=== PATIENT | female | born 1945 | race Caucasian/White ===

== ENCOUNTER 2020-03-08 19:16 | Inpatient (IN) | payer OTHER ==
--- NOTE | 2020-03-08 20:05 | RAD REPORT ---
EXAM DESCRIPTION: Nasreen Single View03/08/2020 8:00 pm CLINICAL HISTORY: Chest pain COMPARISON: 2014 FINDINGS: The lungs appear clear of acute infiltrate. The heart is upper limits normal size IMPRESSION: No acute abnormalities displayed
--- NOTE | 2020-03-08 20:17 | RAD REPORT ---
EXAM DESCRIPTION: CT - Head Brain Wo Cont - 03/08/2020 8:00 pm CLINICAL HISTORY: Alteration of awareness/confusion COMPARISON: None TECHNIQUE: Computed axial tomography of the head was obtained. IV contrast was not requested. All CT scans are performed using dose optimization technique as appropriate and may include automated exposure control or mA/KV adjustment according to patient size. FINDINGS: An intracranial bleed is not seen . The ventricles are normal in caliber. No extra-axial fluid collection is noted. Small low-density areas within the left basal ganglia and right internal capsule probably old lacunar infarction. Mild low-density areas within periventricular, deep and subcortical white matter likely ischemic changes secondary to small vessel disease Fluid within the sinuses/ mastoids is not seen. IMPRESSION: No acute intracranial abnormality noted. If patient continues have symptoms to suggest acute intracranial pathology then MRI of the brain woul d be recommended.
[2020-03-08 20:49] LABS: ALT/SGPT 24 U/L (12-78); AST/SGOT 17 U/L (15-37); Albumin 2.4 g/dL (3.4-5.0); Alkaline Phosphatase 76 U/L (45-117); BUN Blood Urea Nitrogen 58 mg/dL (7-18); Bicarbonate 28 mmol/L (21-32); Bilirubin Direct < 0.1 mg/dL (0-0.2); Bilirubin Total 0.1 mg/dL (0.2-1.0); CKMB Creatine Kinase MB < 1.0 ng/mL (0.3-3.6); Creatine Phosphokinase 18 U/L (26-192); Glucose Level 179 mg/dL (74-106); Lipase 1146 U/L (73-393); Magnesium 2.4 mg/dL (1.8-2.4); Potassium 4.9 mmol/L (3.5-5.1); Protein, Total 7.5 g/dL (6.4-8.2); Sodium Level 138 mmol/L (136-145); Troponin (Emerg Dept Use Only) < 0.02 ng/mL (0.0-0.045)
[2020-03-08 20:50] LABS: Protime INR 0.97
[2020-03-08 21:03] LABS: Urine Blood 2+ (NEG); Urine Glucose NEGATIVE (NEG); Urine Protein 2+ (NEG); Urine pH 7.5 (5.0-7.0)
[2020-03-08 21:06] LABS: Absolute Lymphocytes (CBC) 1.9 K/uL (0.7-4.9); Basophils % 0.4 % (0-1.3); Hematocrit 25.5 % (36.0-45.0); Lymphocytes % 15.9 % (15.3-44.8); MPV 7.7 fL (7.6-11.3); RBC Red Blood Cell Count 2.78 M/uL (3.86-4.86)
[2020-03-08 21:47] LABS: Urine Bacteria >50 /HPF (<20); Urine RBC <5 /HPF (NONE SEEN)
[2020-03-08 21:48] LABS: Urine Culture Reflex Order REFLEXED; Urine Yeast PRESENT (NONE SEEN)
--- NOTE | 2020-03-08 23:27 | EDPHYS ---
Physician Documentation [facility] Name: Kathryn Hein Age: 75 yrs Sex: Female : 1945 Arrival Date: 03/08/2020 Time: 19:18 Bed 7 Private MD: ED Physician Shalom Cole HPI: 03/08 19:57 This 75 yrs old Female presents to ER via EMS with complaints of Altered mh7 Mental Status. 19:57 The patient presents with Increased sleepiness and less talkative. Onset: The mh7 symptoms/episode began/occurred 2 day(s) ago. Possible causes: unknown. Possible causes: low blood sugar. Associated signs and symptoms: Pertinent negatives: abdominal pain, agitation, ataxia, blurred vision, chest pain, combativeness, confusion, diaphoresis, diarrhea, dizziness, headache, lightheadedness, nausea, numbness, palpitations, seizure, shortness of breath, tingling, vertigo, vomiting, weakness. Current symptoms: In the emergency department the patient's symptoms have improved, markedly, is more alert. Patient's baseline: Neuro: alert but confused, Motor: no deficits, Ambulation: unable to walk, is bedridden, Speech: normal for age, The patient has a previous history of Dementia. It is unknown whether or not the patient has had similar symptoms in the past. Patient sent from care home due increased sleeping and being less talkative for the past 2 days. Patient is awake, alert and oriented here and denies any complaints.. Historical: - Allergies: 19:29 No Known Allergies; rv - PMHx: 19:29 Dementia; COPD; rv - Immunization history:: Adult Immunizations up to date. - Social history:: Smoking status: unknown. ROS: 19:57 Constitutional: Negative for fever, chills, and weight loss, Eyes: Negative for injury, mh7 pain, redness, and discharge, ENT: Negative for injury, pain, and discharge, Neck: Negative for injury, pain, and swelling, Cardiovascular: Negative for chest pain, palpitations, and edema, Respiratory: Negative for shortness of breath, cough, wheezing, and pleuritic chest pain, Abdomen/GI: Negative for abdominal pain, nausea, vomiting, diarrhea, and constipation, Back: Negative for injury and pain, : Negative for injury, bleeding, discharge, and swelling, MS/Extremity: Negative for injury and deformity, Skin: Negative for injury, rash, and discoloration, Psych: Negative for depression, anxiety, suicide ideation, homicidal ideation, and hallucinations, Allergy/Immunology: Negative for hives, rash, and allergies, Endocrine: Negative for neck swelling, polydipsia, polyuria, polyphagia, and marked weight changes, Hematologic/Lymphatic: Negative for swollen nodes, abnormal bleeding, and unusual bruising. Exam: 19:57 Constitutional: This is a well developed, well nourished patient who is awake, alert, mh7 and in no acute distress. Head/Face: Normocephalic, atraumatic. Eyes: Pupils equal round and reactive to light, extra-ocular motions intact. Lids and lashes normal. Conjunctiva and sclera are non-icteric and not injected. Cornea within normal limits. Periorbital areas with no swelling, redness, or edema. ENT: Nares patent. No nasal discharge, no septal abnormalities noted. Tympanic membranes are normal and external auditory canals are clear. Oropharynx with no redness, swelling, or masses, exudates, or evidence of obstruction, uvula midline. Mucous membranes moist. Neck: Trachea midline, no thyromegaly or masses palpated, and no cervical lymphadenopathy. Supple, full range of motion without nuchal rigidity, or vertebral point tenderness. No Meningismus. Chest/axilla: Normal chest wall appearance and motion. Nontender with no deformity. No lesions are appreciated. Cardiovascular: Regular rate and rhythm with a normal S1 and S2. No gallops, murmurs, or rubs. Normal PMI, no JVD. No pulse deficits. Respiratory: Lungs have equal breath sounds bilaterally, clear to auscultation and percussion. No rales, rhonchi or wheezes noted. No increased work of breathing, no retractions or nasal flaring. Abdomen/GI: Soft, non-tender, with normal bowel sounds. No distension or tympany. No guarding or rebound. No evidence of tenderness throughout. Back: No spinal tenderness. No costovertebral tenderness. Full range of motion. Female : Normal external genitalia. Skin: Warm, dry with normal turgor. Normal color with no rashes, no lesions, and no evidence of cellulitis. 19:57 Neuro: Awake and alert, GCS 15, oriented to person, place, time, and situation. Cranial nerves II-XII grossly intact. Motor strength 5/5 in all extremities. Sensory grossly intact. Cerebellar exam normal. Normal gait. Psych: Awake, alert, with orientation to person, place and time. Behavior, mood, and affect are within normal limits. 19:57 Musculoskeletal/extremity: Extremities: noted in the right foot: toe amputations without erythema, tenderness, discharge, ROM: intact in all extremities, Circulation is intact in all extremities. Sensation intact. Compartment Syndrome exam of affected extremity: is normal. no pain, no numbness, no tingling, no sensation deficit, no palor, no weak pulses, Joints: All joints appear normal with full range of motion. Weight bearing: is unable to bear weight. 23:41 ECG was reviewed by the Attending Physician. [facility] Vital Signs: 19:20 BP 152 / 64; Pulse 81; Resp 19; Temp 98.9; Pulse Ox 100% ; Weight 54.43 kg; rv 21:00 BP 128 / 48; Pulse 76; Resp 15; Pulse Ox 100% on 3 lpm NC; rv 21:30 BP 129 / 46; Pulse 76; Resp 12; Pulse Ox 100% on 3 lpm NC; rv 22:16 BP 121 / 54; Pulse 77; Resp 15; Pulse Ox 100% on 3 lpm NC; rv 23:00 BP 127 / 56; Pulse 75; Resp 15; Pulse Ox 100% on 3 lpm NC; rv 23:30 BP 129 / 63; Pulse 74; Resp 15; Pulse Ox 100% on 3 lpm NC; rv 03/09 00:00 BP 122 / 58; Pulse 79; Resp 14; Pulse Ox 100% on R/A; rv 01:00 BP 114 / 63; Pulse 77; Resp 16; Pulse Ox 100% on 3 lpm NC; rv 02:00 BP 113 / 60; Pulse 77; Resp 18; Temp 98.7; Pulse Ox 100% on 3 lpm NC; rv MDM: 03/08 19:19 Patient medically screened. [facility] 23:24 Differential Diagnosis: CVA, electrolyte abnormality, hypoglycemia, intracranial bleed, 7 pneumonia, sepsis, UTI, volume depletion. Data reviewed: vital signs, nurses notes, EMS record, care home records, lab test result(s), CBC, electrolytes, urinalysis, EKG, radiologic studies, CT scan, plain films. Data interpreted: Pulse oximetry: on room air is 100 %. Interpretation: normal. Counseling: I had a detailed discussion with the patient and/or guardian regarding: the historical points, exam findings, and any diagnostic results supporting the discharge/admit diagnosis, lab results, radiology results, the need for further work-up and treatment in the hospital. Response to treatment: the patient's symptoms have markedly improved after treatment. 03/08 19:22 Order name: Basic Metabolic Panel [facility] 03/08 19:22 Order name: CBC with Diff; Complete Time: 22: [facility] 03/08 19:22 Order name: Ckmb; Complete Time: : [facility] 03/08 19:22 Order name: CPK; Complete Time: : [facility] 03/08 19:22 Order name: Hepatic Function; Complete Time: : [facility] 03/08 19:22 Order name: Lipase; Complete Time: : [facility] 03/08 19:22 Order name: Magnesium; Complete Time: 21: [facility] 03/08 19:22 Order name: Protime (+inr); Complete Time: 22:20 [facility] 03/08 19:22 Order name: Ptt, Activated; Complete Time: 22:20 [facility] 03/08 19:22 Order name: Troponin (emerg Dept Use Only); Complete Time: 21: [facility] 03/08 19:22 Order name: Basic Metabolic Panel; Complete Time: 21: [facility] 03/08 20:47 Order name: Urine Microscopic Only; Complete Time: 22:20 rr5 03/08 20:48 Order name: Urine Dipstick--Ancillary (enter results); Complete Time: 22:20 tt3 03/08 21:49 Order name: Urine Culture [facility] 03/08 19:22 Order name: EKG; Complete Time: 19:23 [facility] 03/08 19:22 Order name: Cardiac monitoring; Complete Time: 19:53 [facility] 03/08 19:22 Order name: EKG - Nurse/Tech; Complete Time: 20:19 [facility] 03/08 19:22 Order name: IV Saline Lock; Complete Time: 21:05 [facility] 03/08 19:22 Order name: Labs collected and sent; Complete Time: 21: [facility] 03/08 19:22 Order name: NPO; Complete Time: 19:22 [facility] 03/08 19:22 Order name: O2 Per Protocol; Complete Time: 19:22 [facility] 03/08 19:22 Order name: O2 Sat Monitoring; Complete Time: 19:22 03/08 19:22 Order name: Urine Dipstick-Ancillary (obtain specimen); Complete Time: 20:47 [facility] 03/08 19:22 Order name: Chest Single View XRAY; Complete Time: 21:01 [facility] 03/08 19:25 Order name: CT Head Brain wo Cont; Complete Time: 21:01 [facility] 03/08 21:04 Order name: CT Abd/Pelvis - IV Contrast Only [facility] 03/08 22:44 Order name: Lactate [facility] 03/08 23:24 Order name: COVID-19 [facility] 03/08 23:48 Order name: Blood Culture Adult (2) rv EC:41 Rate is 76 beats/min. Rhythm is regular. QRS [place] is Normal. AL interval is normal. QRS mh7 interval is normal. QT interval is normal. No Q waves. T waves are Normal. No ST changes noted. Clinical impression: NSR w/ Non-specific ST/T Changes. Administered Medications: 23:57 Drug: LevaQUIN 500 mg Volume: 100 ml; Route: IVPB; Infused Over: 60 mins; Site: right rv upper arm; 03/09 00:44 Follow up: IV Status: Completed infusion; IV Intake: 100ml rv Disposition: 03/08/20 23:26 Hospitalization ordered by Alberto Bowen for Inpatient Admission. Preliminary diagnosis are Altered mental status, unspecified, Urinary tract infection, site not specified. - Bed requested for Telemetry/MedSurg (Inpatient). - Status is Inpatient Admission. rv - Condition is Stable. - Problem is new. - Symptoms have improved. Signatures: Dispatcher [employer] Nancy Lord RN RN cg Brendon Mcgovern RN RN rv Shalom Cole MD MD mh7 Corrections: (The following items were deleted from the chart) 01:36 03/08 23:26 Hospitalization Ordered by Alberto Bowen for Inpatient Admission. cg Preliminary diagnosis is Altered mental status, unspecified; Urinary tract infection, site not specified. Bed requested for Telemetry/MedSurg (Inpatient). Status is Inpatient Admission. Condition is Stable. Problem is new. Symptoms have improved. mh7 03/09 02:40 01:36 03/08/2020 23:26 Hospitalization Ordered by Alberto Bowen for Inpatient rv Admission. Preliminary diagnosis is Altered mental status, unspecified; Urinary tract infection, site not specified. Bed requested for Telemetry/MedSurg (Inpatient). Status is Inpatient Admission. Condition is Stable. Problem is new. Symptoms have improved.
--- NOTE | 2020-03-08 23:27 | ER ---
Nurse's Notes [facility] Name: Kathryn Hein Age: 75 yrs Sex: Female : 1945 Arrival Date: 03/08/2020 Time: 19:18 Bed 7 Private MD: Diagnosis: Altered mental status, unspecified;Urinary tract infection, site not specified Presentation: 03/08 19:20 Chief complaint: EMS states: COMING IN FOR ALTERED MENTAL STATUS AND RIGHT LEG PAIN. NO rv FEVER. CURRENTLY ON ANTIBIOTIC TREATMENT FOR WOUND ON LOWER EXTREMITIES. TALKED TO THE NURSE AT WHEELER AND DESCRIBED THE CHANGE IN MENTATION SLEEPINESS AND BEING QUIET. NO CHANGE IN ORIENTATION LING. PATIENT HAS THREE DAYS LEFT ON THE ANTIBIOTIC TREATMENT. Coronavirus screen: Proceed with normal triage. Ebola Screen: No symptoms or risks identified at this time. Initial Sepsis Screen: Does the patient meet any 2 criteria? Altered Mental Status. Does the patient have a suspected source of infection? Yes: Skin breakdown/wound. Risk Assessment: Do you want to hurt yourself or someone else? Patient reports no desire to harm self or others. Onset of symptoms was March 06, 2020. 19:20 Method Of Arrival: EMS: [facility] rv 19:20 Acuity: FRANCIS 3 rv Triage Assessment: 19:29 General: Appears comfortable, Behavior is calm, cooperative. rv 19:30 Pain: Complains of pain in right leg. EENT: No signs and/or symptoms were reported rv regarding the EENT system. Neuro: Level of Consciousness is awake, obeys commands, confused, Oriented to person, place. Cardiovascular: Patient's skin is warm and dry. Rhythm is sinus rhythm. Respiratory: Airway is patent Respiratory effort is unlabored, Breath sounds are clear bilaterally. Derm: Wound noted right leg and left leg. Historical: - Allergies: 19:29 No Known Allergies; rv - PMHx: 19:29 Dementia; COPD; rv - Immunization history:: Adult Immunizations up to date. - Social history:: Smoking status: unknown. Screenin:32 Abuse screen: CONFUSED. Nutritional screening: No deficits noted. Tuberculosis rv screening: No symptoms or risk factors identified. Fall Risk No fall in past 12 months (0 pts). Secondary diagnosis (15 points) dementia, IV access (20 points). Ambulatory Aid- Crutches/Cane/Walker (15 pts). Gait- Weak (10 pts.). Mental Status- Overestimates/Forgets Limitations (15 pts.). Total Alves Fall Scale indicates Low Risk Score (25-44 pts). Fall prevention measures have been instituted. Side Rails Up X 2 Frequent Obs/Assesments occuring As available Patient and Family Educated on Fall Prevention Program and strategies. Assessment: 22:16 Reassessment: patient is talking normally, appears to be awake and oriented. awaiting rv CT scan result. 22:17 Neuro: Level of Consciousness is awake, obeys commands, confused, Oriented to person, rv place. Cardiovascular: Patient's skin is warm and dry. Rhythm is sinus rhythm. Respiratory: Airway is patent. 03/09 00:28 Reassessment:. Neuro: Level of Consciousness is awake, obeys commands, confused, rv Oriented to person, place. Cardiovascular: Patient's skin is warm and dry. Rhythm is sinus rhythm. Respiratory: Airway is patent. Vital Signs: 03/08 19:20 BP 152 / 64; Pulse 81; Resp 19; Temp 98.9; Pulse Ox 100% ; Weight 54.43 kg; rv 21:00 BP 128 / 48; Pulse 76; Resp 15; Pulse Ox 100% on 3 lpm NC; rv 21:30 BP 129 / 46; Pulse 76; Resp 12; Pulse Ox 100% on 3 lpm NC; rv 22:16 BP 121 / 54; Pulse 77; Resp 15; Pulse Ox 100% on 3 lpm NC; rv 23:00 BP 127 / 56; Pulse 75; Resp 15; Pulse Ox 100% on 3 lpm NC; rv 23:30 BP 129 / 63; Pulse 74; Resp 15; Pulse Ox 100% on 3 lpm NC; rv 03/09 00:00 BP 122 / 58; Pulse 79; Resp 14; Pulse Ox 100% on R/A; rv 01:00 BP 114 / 63; Pulse 77; Resp 16; Pulse Ox 100% on 3 lpm NC; rv 02:00 BP 113 / 60; Pulse 77; Resp 18; Temp 98.7; Pulse Ox 100% on 3 lpm NC; rv ED Course: 03/08 19:18 Patient arrived in ED. cl3 19:19 Shalom Cole MD is Attending Physician. mh7 19:20 Froilan, Brendon, RN is Primary Nurse. rv 19:28 Triage completed. rv 19:31 Arm band placed on Patient placed in the treatment room, on a stretcher, Patient rv notified of wait time. 19:31 Accessed PICC line. Clean \T\ dry. Dressing intact. Good blood return. Flushes easily. rv 19:32 Patient has correct armband on for positive identification. monitoring manager on. Pulse rv ox on. NIBP on. 20:00 Chest Single View XRAY In Process Unspecified. EDMS 20:01 CT Head Brain wo Cont In Process Unspecified. EDMS 22:15 CT Abd/Pelvis - IV Contrast Only In Process Unspecified. EDMS 23:26 Alberto Bowen is Hospitalizing Provider. [facility] 03/09 00:28 No provider procedures requiring assistance completed. IV is patent, with fluids rv infusing freely, with good blood return, Patient admitted, IV remains in place. Administered Medications: 03/08 23:57 Drug: LevaQUIN 500 mg Volume: 100 ml; Route: IVPB; Infused Over: 60 mins; Site: right rv upper arm; 03/09 00:44 Follow up: IV Status: Completed infusion; IV Intake: 100ml rv Intake: 00:44 IV: 100ml; Total: 100ml. rv Outcome: 03/08 23:26 Decision to Hospitalize by Provider. [facility] 03/09 00:28 Condition: good rv 00:29 Instructed on the need for admit. rv 02:23 Admitted to Med/surg accompanied by tech, via stretcher, room 206, Report called to abigail PEDRO RN 02:40 Patient left the ED. rv Signatures: Dispatcher [employer] Brendon Sharma, TARAN RN Edward Cardona cl3 Shalom Cole MD MD [facility]
[2020-03-08] MEDS ORDERED: Levofloxacin500mg IV 500 MG/100 ML BAG IV ONE (23:38)
--- NOTE | 2020-03-09 00:45 | P.HP ---
Certification for Inpatient Patient admitted to: Observation With expected LOS: <2 Midnights Practitioner: I am a practitioner with admitting privileges, knowledge of patient current condition, hospital course, and medical plan of care. Services: Services provided to patient in accordance with Admission requirements found in Title 42 Section 412.3 of the Code of Federal Regulations Patient History Date of Service: 03/09/20 Reason for admission: Altered mental status History of Present Illness: 75-year-old woman with a history of diabetes, CA and COPD was transferred from the halfway to the emergency department due to reported altered mental status. Per chart review, patient was noted to be more sleepy and mute. This was interpreted as altered mental status by the halfway staff and was brought to the emergency department. The patient was awake and communicating during my examination. She had no idea why she is in the ED. She denies any complain. She has a history of chronic ulcers on the right foot-tip of the right big toe and heel which is being treated with IV antibiotics in the halfway. She has mild leukocytosis, anemia, and incidental elevated lipase. Patient denies any abdominal pain. UA suggest the presence of UTI. Chest x-ray shows no acute infiltrates. Patient is admitted for further management. Allergies sulfamethoxazole [From Septra] Allergy (Severe, Verified 07/24/12 17:07) Shortness of breath trimethoprim [From Septra] Allergy (Severe, Verified 07/24/12 17:07) Shortness of breath codeine [Codeine] Allergy (Mild, Verified 09/06/15 20:43) Hives/Rash NKDA Allergy (Uncoded 09/08/15 14:47) Unknown Home Medications: Metformin ER [Glucophage ER*] 500 mg PO BID 07/25/12 Albuterol Neb [Proventil 0.083% Neb Soln] 1 puff IN Q6HR PRN 06/01/13 Atorvastatin Calcium 40 mg PO DAILY 09/06/15 Clopidogrel Bisulfate [Plavix*] 75 mg PO DAILY 09/06/15 Diltiazem Tab [Cardizem Tab*] 120 mg PO DAILY 09/06/15 Fluoxetine HCl 20 mg PO DAILY 09/06/15 Fluticasone/Salmeterol [Advair 250/50 Diskus*] 1 puff IN BID 09/06/15 Metoclopramide HCl [Reglan] 10 mg PO BEDTIME 09/06/15 Montelukast [Singulair*] 10 mg PO DAILY 09/06/15 Omeprazole [Prilosec] 20 mg PO DAILY 09/06/15 Pentoxifylline 400 mg PO BID 09/06/15 Tiotropium Welch [Spiriva] 18 mcg IN DAILY 09/06/15 lisinopriL [Lisinopril] 10 mg PO BID 09/06/15 Amox/Clavulanate [Augmentin 875-125 Tab*] 875 mg PO BID #14 tab 09/16/15 Hydrocodone 10/APAP 325 [[place] 10/325] 1 tab PO Q6H PRN #30 tab 09/16/15 Magnesium Oxide [Mag 0X*] 400 mg PO BID #60 tab 09/16/15 Rivaroxaban [Xarelto] 20 mg PO DAILY #30 tablet 09/16/15 fentaNYL [Duragesic] 25 mg TD Q72H #5 patch.[id number] 09/16/15 - Past Medical/Surgical History Diabetic: Yes -: dm -: copd -: mi -: osteoporosis -: arthritis -: sciatica -: kuldeep foot sx -: hysterectomy -: breast biopsy -: 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 Physical Examination - Physical Exam General: In no apparent distress, Other (Awake) HEENT: PERRLA, Mucous membr. moist/pink, Sclerae nonicteric Neck: Supple, JVD not distended Respiratory: Clear to auscultation bilaterally, Normal air movement Cardiovascular: No edema, Regular rate/rhythm, Normal S1 S2 Capillary refill: <2 Seconds Gastrointestinal: Normal bowel sounds, Soft and benign, No tenderness Musculoskeletal: No swelling, No erythema Integumentary: Other (ulcer tip of right big toe and right heel.) Neurological: Other (Nonfocal. She moves all extremities spontaneously.) - Studies Laboratory Data (last 24 hrs) 03/08/20 20:10: PT 11.5, INR 0.97, APTT 26.7 06/26/20 20:10: WBC 12.1 H, Hgb 8.0 L, Hct 25.5 L, Plt Count 391 03/08/20 20:10: Sodium 138, Potassium 4.9, BUN 58 H, Creatinine 0.79, Glucose 179 H, Magnesium 2.4, Total Bilirubin 0.1 L, AST 17, ALT 24, Alkaline Phosphatase 76, Lipase 1146 H Assessment and Plan - Problems (Diagnosis) (1) Acute cystitis Current Visit: Yes Status: Acute (2) Metabolic encephalopathy Current Visit: Yes Status: Acute (3) Open wound of foot Onset Date: 06/12/13 Current Visit: No Status: Active (4) Diabetes mellitus with hyperglycemia Onset Date: 09/09/15 Current Visit: No Status: Acute - Plan Admit to the medical floor. Start IV Rocephin and vancomycin. Follow urine culture and blood cultures. Wound care consult. Insulin sliding scale for glucose management. Elevated lipases is incidental. Follow COVID 19 test result. - Advance Directives Does patient have a Living Will: No Does patient have a Durable POA for Healthcare: Yes
[2020-03-09 03:05] VITALS: BMI 24.5
[2020-03-09] MEDS ORDERED: ACETAMINOPHEN 500 MG TAB PO PRN (03:10)
[2020-03-09] MEDS: CEFTRIAXONE/SWI 1gm 1 GM/10 ML SYR IV SCH (03:54)
[2020-03-09] MEDS: NA CHLORIDE 0.9% 1,000 ML IV SCH ×2 (03:55→16:34)
[2020-03-09] MEDS ORDERED: NA CHLORIDE 0.9% 100 ML ONE (04:07)
[2020-03-09] MEDS: VANCOMYCIN 1 GM in NA CHLORIDE 0.9% 250 ML IVPB SCH (04:15)
[2020-03-09] MEDS ORDERED: VANCOMYCIN 1 GM/VIAL ONE (04:21)
[2020-03-09] MEDS: GLUCERNA 1.5 CAL 1,000 ML BOT FT SCH (06:43)
[2020-03-09] MEDS ORDERED: GLUCERNA 1.5 CAL 1,000 ML BOT FT SCH (07:00)
[2020-03-09] MEDS ORDERED: INSULIN -REGULAR HUMAN 50 UNIT/0.5 ML ML SQ SCH (07:30)
[2020-03-09] MEDS: ENOXAPARIN 40 MG/0.4 ML SQ SCH (08:37)
--- NOTE | 2020-03-09 11:25 | EKG ---
Test Date: 2020-03-08 Test Time: 20:13:10 [facility] Professor: HOOD MEASUREMENT RESULTS: Intervals: Rate: 76 NM: 128 QRSD: 68 QT: 398 QTc: 447 [place]: P: 69 NM: 128 QRS: 65 T: -35 INTERPRETIVE STATEMENTS: Normal sinus rhythm ST & T wave abnormality, consider inferior ischemia Abnormal ECG Compared to ECG 09/07/2015 06:29:24 ST (T wave) deviation now present Possible ischemia now present Sinus arrhythmia no longer present Myocardial infarct finding no longer present Electronically Signed On 03-09-20 11:23:17 CDT by Sabino Lucas
[2020-03-09] MEDS: INSULIN -REGULAR HUMAN 50 UNIT/0.5 ML ML SQ SCH ×2 (12:00→18:00)
--- NOTE | 2020-03-09 20:27 | RAD REPORT ---
EXAM DESCRIPTION: CT of the lumbar spine without contrast. CLINICAL HISTORY: LOWER BACK PAIN COMPARISON: 04/22/2016 TECHNIQUE: Axial CT of the lumbar spine obtained without contrast. FINDINGS: Acute or subacute compression fracture of the L1 vertebral body with approximately 5% loss of vertebral body height and without significant retropulsion of fracture fragments. No other acute fracture identified. Osteopenia. L1/2: Mild loss of intervertebral disc height with mild broad-based disc bulge. Facet arthropathy wi th endplate spondylosis. Mild osseous neural foraminal narrowing. L2/3: Moderate loss of intervertebral disc height with broad-based posterior disc bulge. Effacement of the thecal sac. Ligamentum flavum hypertrophy. Facet arthropathy and endplate spondylosis. Mild bi lateral neural foraminal narrowing. L3/4: Mild loss of intervertebral disc height. Mild broad-based posterior disc bulge. Ligamentum fla vum hypertrophy. Mild narrowing of the spinal canal due to soft tissues and osseous structures. Facet arthropathy and endplate spondylosis. Mild bilateral neural foraminal narrowing. L4/5: Mild loss of intervertebral disc height. 3 mm anterolisthesis of L4 over L5 which is degenerat isa. Mild broad-based posterior disc bulge. Moderate bilateral neural foraminal narrowing. Facet arth ropathy and ligament flavum hypertrophy. L5/S1: Severe loss of intervertebral disc height and broad-based posterior disc bulge. Facet arthropa thy with endplate spondylosis. Severe osseous neural foraminal narrowing. Aortoiliac atherosclerosis. Prior hysterectomy. Partial visualization of left total hip arthroplasty. IMPRESSION: 1. Acute/subacute compression fracture of the L1 vertebral body with approximately 5% loss of verteb ral body height and no significant retropulsion of fracture fragments. MRI would provide more accurat e characterization of acuity. 2. Severe multilevel degenerative change of the lumbar spine. This exam was performed according to our departmental dose-optimization program, which includes autom ated exposure control, adjustment of the mA and/or kV according to patient size and/or use of iterati ve reconstruction technique. Electronically signed by: Tung Benitez 03/07/2020 10:33 PM CDT Due to temporary technical issues with the PACS/Fluency reporting system, reports are being signed by the in house radiologist without review as a courtesy to ensure prompt reporting. The interpreting r adiologist is fully responsible for the content of the report.
[2020-03-10] MEDS: INSULIN -REGULAR HUMAN 50 UNIT/0.5 ML ML SQ SCH ×4 (00:26→18:00)
[2020-03-10] MEDS: GLUCERNA 1.5 CAL 1,000 ML BOT FT SCH (02:15)
[2020-03-10] MEDS: VANCOMYCIN 1 GM in NA CHLORIDE 0.9% 250 ML IVPB SCH (03:37)
[2020-03-10] MEDS: CEFTRIAXONE/SWI 1gm 1 GM/10 ML SYR IV SCH (03:37)
[2020-03-10] MEDS: NA CHLORIDE 0.9% 1,000 ML IV SCH (04:51)
[2020-03-10 05:44] LABS: BUN Blood Urea Nitrogen 31 mg/dL (7-18); Bicarbonate 27 mmol/L (21-32); Glucose Level 121 mg/dL (74-106); Magnesium 2.4 mg/dL (1.8-2.4); Phosphorus 3.5 mg/dL (2.5-4.9); Potassium 4.5 mmol/L (3.5-5.1); Sodium Level 142 mmol/L (136-145)
[2020-03-10 05:58] LABS: Absolute Lymphocytes (CBC) 1.8 K/uL (0.7-4.9); Basophils % 0.4 % (0-1.3); Hematocrit 22.1 % (36.0-45.0); Lymphocytes % 14.9 % (15.3-44.8); MPV 7.4 fL (7.6-11.3); RBC Red Blood Cell Count 2.38 M/uL (3.86-4.86)
[2020-03-10] MEDS: ENOXAPARIN 40 MG/0.4 ML SQ SCH (08:37)
[2020-03-10] MEDS: AMLODIPINE 10 MG TAB PO SCH (13:01)
--- NOTE | 2020-03-10 13:08 | P.PN ---
Subjective Date of Service: 03/10/20 Chief Complaint: Altered mental status Subjective: No new changes (-still confused) Physical Examination - Vital Signs Temperature: 97.7 F Blood Pressure: 187/78 Pulse: 88 Respirations: 18 Pulse Ox (%): 100 - Physical Exam General: Alert, In no apparent distress, Confused HEENT: Atraumatic, Normocephalic Neck: Supple, 2+ carotid pulse no bruit Respiratory: Clear to auscultation bilaterally, Normal air movement Cardiovascular: No edema, Normal pulses, Regular rate/rhythm Gastrointestinal: Normal bowel sounds, Soft and benign Musculoskeletal: No clubbing, No swelling Neurological: Abnormal reflexes (drowsy) Assessment & Plan - Problems (Diagnosis) (1) Acute metabolic encephalopathy Current Visit: Yes Status: Acute (2) UTI (urinary tract infection) Onset Date: 09/09/15 Current Visit: No Status: Acute Physician Review: Patient Assessed, Agree with Above Assessment and Plan Physician Review Additional Text: # altered mental status-may be due to on going foot wound needs 9-blood culture so far Continue empirical antibiotics with vanc 1 Rocephin # hypertension-uncontrolled, add Norvasc to regimen today Wound ulcer over the lower extremities-follow wound care Continue empirical antibiotics Possible Baseline Dementia- [facility] resident DVT prophylaxis-subcutaneous heparin Urine culture pending Dispo-possible home/[facility] in a.m.
[2020-03-10] MEDS: FUROSEMIDE 40 MG/4 ML VIAL IV ONE ×2 (13:26→13:28)
--- NOTE | 2020-03-10 14:16 | RAD REPORT ---
EXAM DESCRIPTION: Nasreen Single View03/10/2020 1:49 pm CLINICAL HISTORY: sob COMPARISON: 03/08 FINDINGS: The lungs appear clear of acute infiltrate. The heart is mildly enlarged. Pacemaker leads are in place. IMPRESSION: No acute abnormalities displayed
[2020-03-11] MEDS ORDERED: HYDRALAZINE HCL 20 MG/ML VIAL IV PRN (00:53)
[2020-03-11] MEDS ORDERED: ALBUTEROL 2.5 MG/3 ML NEB SOL NEB PRN (03:24)
[2020-03-11] MEDS ORDERED: TRAZODONE 50 MG TABLET PO ONE (03:25)
[2020-03-11 03:38] LABS: Absolute Lymphocytes (CBC) 2.1 K/uL (0.7-4.9); Basophils % 0.5 % (0-1.3); Hematocrit 25.6 % (36.0-45.0); Lymphocytes % 15.4 % (15.3-44.8); MPV 7.4 fL (7.6-11.3); RBC Red Blood Cell Count 2.77 M/uL (3.86-4.86)
[2020-03-11] MEDS: CEFTRIAXONE/SWI 1gm 1 GM/10 ML SYR IV SCH (03:40)
[2020-03-11 03:42] LABS: Potassium 4.3 mmol/L (3.5-5.1)
[2020-03-11 04:27] VITALS: O2SAT 100
[2020-03-11] MEDS: VANCOMYCIN 1 GM in NA CHLORIDE 0.9% 250 ML IVPB SCH (04:31)
[2020-03-11] MEDS: INSULIN -REGULAR HUMAN 50 UNIT/0.5 ML ML SQ SCH ×3 (06:20→12:00)
[2020-03-11] MEDS: ENOXAPARIN 40 MG/0.4 ML SQ SCH (10:31)
[2020-03-11] MEDS: AMLODIPINE 10 MG TAB PO SCH (10:31)
[2020-03-11 12:41] VITALS: TEMP 97.3
[2020-03-11] MEDS ORDERED: FLUCONAZOLE 100 MG TAB PO SCH (13:00)
--- NOTE | 2020-03-11 13:16 | P.DS ---
Admission Date: 03/09/20 Discharge Date: 03/11/20 Primary Care Provider: [facility] doctor Reason for Admission: Altered mental status Consultations: none Procedures: Chest x-ray EXAM DESCRIPTION: Nasreen Single View03/08/2020 8:00 pm CLINICAL HISTORY: Chest pain COMPARISON: 2014 FINDINGS: The lungs appear clear of acute infiltrate. The heart is upper limits normal size IMPRESSION: No acute abnormalities displayed Dictated By: Brian Jasso MD 03/08/202003 Signed By: Brian Jasso MD 03/08/[address] EXAM DESCRIPTION: CT - Head Brain Wo Cont - 03/08/2020 8:00 pm CLINICAL HISTORY: Alteration of awareness/confusion COMPARISON: None TECHNIQUE: Computed axial tomography of the head was obtained. IV contrast was not requested. All CT scans are performed using dose optimization technique as appropriate and may include automated exposure control or mA/KV adjustment according to patient size. FINDINGS: An intracranial bleed is not seen . The ventricles are normal in caliber. No extra-axial fluid collection is noted. Small low-density areas within the left basal ganglia and right internal capsule probably old lacunar infarction. Mild low-density areas within periventricular, deep and subcortical white matter likely ischemic changes secondary to small vessel disease Fluid within the sinuses/ mastoids is not seen. IMPRESSION: No acute intracranial abnormality noted. If patient continues have symptoms to suggest acute intracranial pathology then MRI of the brain would be recommended. Dictated By: Biran Jasso MD 03/08/202015 Signed By: Brian Jasso MD 03/08/202016 CT lumbar spine without contrast EXAM DESCRIPTION: CT of the lumbar spine without contrast. CLINICAL HISTORY: LOWER BACK PAIN COMPARISON: 04/22/2016 TECHNIQUE: Axial CT of the lumbar spine obtained without contrast. FINDINGS: Acute or subacute compression fracture of the L1 vertebral body with approximately 5% loss of vertebral body height and without significant retropulsion of fracture fragments. No other acute fracture identified. Osteopenia. L1/2: Mild loss of intervertebral disc height with mild broad-based disc bulge. Facet arthropathy with endplate spondylosis. Mild osseous neural foraminal narrowing. L2/3: Moderate loss of intervertebral disc height with broad-based posterior disc bulge. Effacement of the thecal sac. Ligamentum flavum hypertrophy. Facet arthropathy and endplate spondylosis. Mild bilateral neural foraminal narrowing. L3/4: Mild loss of intervertebral disc height. Mild broad-based posterior disc bulge. Ligamentum flavum hypertrophy. Mild narrowing of the spinal canal due to soft tissues and osseous structures. Facet arthropathy and endplate spondylosis. Mild bilateral neural foraminal narrowing. L4/5: Mild loss of intervertebral disc height. 3 mm anterolisthesis of L4 over L5 which is degenerative. Mild broad-based posterior disc bulge. Moderate bilateral neural foraminal narrowing. Facet arthropathy and ligament flavum hypertrophy. L5/S1: Severe loss of intervertebral disc height and broad-based posterior disc bulge. Facet arthropathy with endplate spondylosis. Severe osseous neural foraminal narrowing. Aortoiliac atherosclerosis. Prior hysterectomy. Partial visualization of left total hip arthroplasty. IMPRESSION: 1. Acute/subacute compression fracture of the L1 vertebral body with approximately 5% loss of vertebral body height and no significant retropulsion of fracture fragments. MRI would provide more accurate characterization of acuity. 2. Severe multilevel degenerative change of the lumbar spine. This exam was performed according to our departmental dose-optimization program, which includes automated exposure control, adjustment of the mA and/or kV according to patient size and/or use of iterative reconstruction technique. Electronically signed by: Tung Benitez 03/07/2020 10:33 PM CDT Problem list Metabolic encephalopathy Urinary tract infection Open wound to the right foot Diabetes mellitus type 2 COPD History of myocardial infarction Dementia Brief History of Present Illness: 75-year-old female with medical history of diabetes mellitus type 2, COPD, myocardial infarction, dementia from long term presented to the emergency department with chief complaint of staff reporting the patient was with decreased level of consciousness. During her evaluation in the emergency department patient was found to have a urinary tract infection in addition to open wounds to the right foot. [place] was made to the patient's decreased level of consciousness stemmed from her urinary tract infection. Patient was admitted for further evaluation and management of this condition. Hospital Course: 75 year old female with history of diabetes mellitus type 2, COPD, myocardial infarction, dementia, open wound to right foot was admitted for metabolic encephalopathy secondary to urinary tract infection and open wound right foot. Patient has done well during her hospital stay. Patient mental status appears to be at baseline. Discussed case with long term staff who reports that patient has been receiving IV therapy with Rocephin at the long term for wounds to right foot. Urine culture and blood cultures were obtained, blood cultures were negative and urine culture shows normal gregory. Patient did show that she had a yeast infection. This is been addressed with Diflucan 100 mg once daily for 7 days. Patient is to continue with Rocephin 1 g IV once daily for the next 5 days after this hospitalization. Patient has PICC line in place from long term. Patient should receive follow up urine testing after completion of antibiotics. Patient with history of COPD, can continue with Flovent and other medications that she is prescribed previous to this admission for her history of COPD. Patient with history of diabetes mellitus type 2, patient can continue with her previously prescribed medication metformin 500 mg per feeding tube twice daily. Patient history of myocardial infarction, patient is to continue with Plavix 75 mg per feeding tube once daily. Patient with history of hypertension can continue with losartan 25 mg per feeding tube once daily and carvedilol 6.25 mg per feeding tube twice daily. Further adjustments this medication can be made by long term doctor. <Chung Florian - Last Filed: 03/11/20 13:22> Admission Date: 03/09/20 Discharge Date: 03/11/20 Hospital Course: Patient seen and examined. Case discussed at length with nurse practitioner. Agree with evaluation and plan of care. Discharge may be held as long term is wanting to have COVID test performed. If negative will proceed with discharge. <Harvinder Chauhan - Last Filed: 03/11/20 18:14> Disposition: TRANSFER TO RESIDENTIAL Discharge Condition: GOOD Vital Signs/Physical Exam: Temp Pulse Resp BP Pulse Ox 97.3 F 91 H 22 H 119/60 96 03/11/20 12:00 03/11/20 12:00 03/11/20 12:00 03/11/20 12:03/11/20 12:00 General: In no apparent distress, Demented HEENT: Normocephalic, Mucous membr. moist/pink Neck: Supple Respiratory: Clear to auscultation bilaterally, Normal air movement Cardiovascular: Normal pulses, Normal S1 S2 Capillary refill: <2 Seconds Gastrointestinal: Normal bowel sounds, Soft and benign Musculoskeletal: No erythema, No tenderness Integumentary: Pressure ulcer (Right heel and right great toe) Neurological: Abnormal strength (Patient with generalized weakness) Laboratory Data at Discharge: WBC 14.0 K/uL (4.3-10.9) H D 03/11/20 02:30 Hgb 8.2 g/dL (12.0-15.0) L 03/11/20 02:30 Hct 25.6 % (36.0-45.0) L D 03/11/20 02:30 Plt Count 440 K/uL (152-406) H 03/11/20 02:30 PT 11.5 SECONDS (9.5-12.5) 03/08/20 20:10 INR 0.97 03/08/20 20:10 APTT 26.7 SECONDS (24.3-36.9) 03/08/20 20:10 Sodium 139 mmol/L (136-145) 03/11/20 02:30 Potassium 4.3 mmol/L (3.5-5.1) 03/11/20 02:30 BUN 29 mg/dL (7-18) H 03/11/20 02:30 Creatinine 0.64 mg/dL (0.55-1.3) 03/11/20 02:30 Glucose 168 mg/dL (74-106) H 03/11/20 02:30 Phosphorus 3.5 mg/dL (2.5-4.9) 03/10/20 04:38 Magnesium 2.4 mg/dL (1.8-2.4) 03/10/20 04:38 Total Bilirubin 0.1 mg/dL (0.2-1.0) L 03/08/20 20:10 AST 17 U/L (15-37) 03/08/20 20:10 ALT 24 U/L (12-78) 03/08/20 20:10 Alkaline Phosphatase 76 U/L (45-117) 03/08/20 20:10 Lipase 398 U/L (73-393) H 03/11/20 02:30 <Chung Florian - Last Filed: 03/11/20 13:22> Vital Signs/Physical Exam: Temp Pulse Resp BP Pulse Ox 97.3 F 89 23 H 138/58 L 97 03/11/20 16:00 03/11/20 16:00 03/11/20 16:00 03/11/20 16:00 03/11/20 16:00 Laboratory Data at Discharge: WBC 14.0 K/uL (4.3-10.9) H D 03/11/20 02:30 Hgb 8.2 g/dL (12.0-15.0) L 03/11/20 02:30 Hct 25.6 % (36.0-45.0) L D 03/11/20 02:30 Plt Count 440 K/uL (152-406) H 03/11/20 02:30 PT 11.5 SECONDS (9.5-12.5) 03/08/20 20:10 INR 0.97 03/08/20 20:10 APTT 26.7 SECONDS (24.3-36.9) 03/08/20 20:10 Sodium 139 mmol/L (136-145) 03/11/20 02:30 Potassium 4.3 mmol/L (3.5-5.1) 03/11/20 02:30 BUN 29 mg/dL (7-18) H 03/11/20 02:30 Creatinine 0.64 mg/dL (0.55-1.3) 03/11/20 02:30 Glucose 168 mg/dL (74-106) H 03/11/20 02:30 Phosphorus 3.5 mg/dL (2.5-4.9) 03/10/20 04:38 Magnesium 2.4 mg/dL (1.8-2.4) 03/10/20 04:38 Total Bilirubin 0.1 mg/dL (0.2-1.0) L 03/08/20 20:10 AST 17 U/L (15-37) 03/08/20 20:10 ALT 24 U/L (12-78) 03/08/20 20:10 Alkaline Phosphatase 76 U/L (45-117) 03/08/20 20:10 Lipase 398 U/L (73-393) H 03/11/20 02:30 <Harvinder Chauhan - Last Filed: 03/11/20 18:14> Patient Discharge Instructions: 1. Patient will be discharged back to long term and will need to be evaluated by a long term doctor to follow up this hospitalization. 2. 75 year old female with history of diabetes mellitus type 2, COPD, myocardial infarction, dementia, open wound to right foot was admitted for metabolic encephalopathy secondary to urinary tract infection and open wound right foot. Patient has done well during her hospital stay. Patient mental status appears to be at baseline. Discussed case with long term staff who reports that patient has been receiving IV therapy with Rocephin at the long term for wounds to right foot. Urine culture and blood cultures were obtained, blood cultures were negative and urine culture shows normal gregory. Patient did show that she had a yeast infection. This is been addressed with Diflucan 100 mg once daily for 7 days. Patient is to continue with Rocephin 1 g IV once daily for the next 5 days after this hospitalization. Patient has PICC line in place from long term. Patient should receive follow up urine testing after completion of antibiotics. Also continue with wound care as prescribed by long term doctor. Patient with history of COPD, can continue with Flovent and other medications that she is prescribed previous to this admission for her history of COPD. Patient with history of diabetes mellitus type 2, patient can continue with her previously prescribed medication metformin 500 mg per feeding tube twice daily. Patient history of myocardial infarction, patient is to continue with Plavix 75 mg per feeding tube once daily. Patient with history of hypertension can continue with losartan 25 mg per feeding tube once daily and carvedilol 6.25 mg per feeding tube twice daily. Further adjustments this medication can be made by long term doctor. Diet: Continue diet from long term Activity: Fall precautions Time spent managing pt's care (in minutes): 55 <Chung Florian - Last Filed: 03/11/20 13:22> <Harvinder Chauhan - Last Filed: 03/11/20 18:14> Home Medications: Acetaminophen 20 ml FT Q6H PRN 03/09/20 Aspirin [Aspirin EC 81 MG] 1 tab FT DAILY 03/09/20 Atorvastatin Calcium [Lipitor] 20 mg FT BEDTIME 03/09/20 CEFTRIAXONE/SWI 1gm [Rocephin 1 gm/10 ml Swi Ivp] 1 gm IV DAILY 03/09/20 Clopidogrel Bisulfate [Plavix] 75 mg FT DAILY 03/09/20 Collagenase Clostridium Hist. [Santyl] 1 hal TOP DAILY 03/09/20 Ferrous Sulfate 7.5 ml FT DAILY 03/09/20 Ferrous Sulfate 325 mg FT DAILY 03/09/20 Fluticasone Propionate [Flovent Diskus] 2 sprays IH DAILY PRN 03/09/20 Furosemide [Lasix] 40 mg FT DAILY 03/09/20 Gabapentin 3 cap FT DAILY 03/09/20 Insulin Aspart [Novolog Flexpen] 5 units SQ DAILY 03/09/20 Ipratropium/Albuterol Sulfate [Iprat-Albut 0.5-3(2.5) mg/3 ml] 1 vial IH Q6HR PRN 03/09/20 Lactulose 30 ml FT DAILY 03/09/20 Losartan Potassium 25 mg FT DAILY 03/09/20 Megestrol [Megace*] 10 ml FT DAILY 03/09/20 Melatonin 2 tab FT BEDTIME 03/09/20 Metformin HCl [Glucophage*] 1 tab FT BID 03/09/20 Mirtazapine 1 tab FT BEDTIME 03/09/20 Montelukast Sodium 1 tab FT BEDTIME 03/09/20 Nut.tx.gluc Intol,Lf,Soy/Fiber [Glucerna 1.5 Deon Liquid] 1 can FT QID 03/09/20 Potassium Chloride in 0.9%NaCl [Potassium Cl Conc 20 Meq/20 ml] 15 ml FT DAILY 03/09/20 Povidone-Iodine [Betadine Top Soln *] 1 appl TOP DAILY 03/09/20 Sertraline HCl 1 tab FT DAILY 03/09/20 carvediloL [Carvedilol] 1 tab FT BID 03/09/20 traMADol HCL [Ultram*] 2 tab FT BID 03/09/20 Fluconazole 10 ml PO DAILY 7 Days #80 ml 03/11/20 New Medications: Fluconazole 10 ml PO DAILY 7 Days #80 ml
[2020-03-11 17:01] VITALS: BP 138/58
== END 2020-03-11 18:09 | DRG 689 ==
LOC: ER 19:16 → ERHOLD 03-09 01:12 → 2ND 03-09 02:23
PROVIDERS: ADMIT Internal Medicine; ATTEND Family Medicine
DX: N30.00 Acute cystitis without hematuria (principal); G93.41 Metabolic encephalopathy; B37.41 Candidal cystitis and urethritis; I10 Essential (primary) hypertension; I25.2 Old myocardial infarction; F03.90 Unspecified dementia, unspecified severity, without behavioral disturbance, psychotic disturbance, mood disturbance, and anxiety; E11.65 Type 2 diabetes mellitus with hyperglycemia; D64.9 Anemia, unspecified; S91.301A Unspecified open wound, right foot, initial encounter; J44.9 Chronic obstructive pulmonary disease, unspecified; L89.899 Pressure ulcer of other site, unspecified stage; L89.619 Pressure ulcer of right heel, unspecified stage; D72.829 Elevated white blood cell count, unspecified; Z88.1 Allergy status to other antibiotic agents; Z88.5 Allergy status to narcotic agent; Z79.84 Long term (current) use of oral hypoglycemic drugs; Z79.02 Long term (current) use of antithrombotics/antiplatelets; Z79.899 Other long term (current) drug therapy; Z79.891 Long term (current) use of opiate analgesic; Z90.710 Acquired absence of both cervix and uterus; Z89.422 Acquired absence of other left toe(s); Z11.59 Encounter for screening for other viral diseases
CPT/HCPCS: 36415; 70450; 71045; 74177; 80048; 80076; 80202; 81003; 81015; 82550; 82553; 82947; 83605; 83690; 83735; 84100; 84484; 85025; 85610; 85730; 87040; 87086; 87088; 93005; 94640; 94760; 96365; 97161; 99251; 99285; J0360; J0696; J1650; J1940; J7030; Q9967; U0002